=== PATIENT | male | born 1940 | race Caucasian/White ===

== ENCOUNTER 2017-12-13 15:35 | Inpatient (IN) | payer OTHER ==
[~2017-12-13] VITALS: Ht 185.4 cm; Wt 70.8 kg
[~2017-12-13 15:35] MED LIST: ALBMDI INH; AMIO200T3 PO; APIX5TAB PO; LIP10 PO; LORA-258 PO; MEMA14CA PO; MES60 PO; METO25TA3 PO; MONT10TA25 PO; PRO40 PO; SER25 PO; VENL75CA PO
[2017-12-13 15:40] VITALS: BP_SYST 129
[2017-12-13] MEDS ORDERED: NACL 0.9% 1,000 ML IV ONE ×2 (17:15→19:30)
[2017-12-13 17:45] LABS: LYMPHOCYTES # (AUTO) 1.1 K/uL (1.0-5.5); MEAN CORPUSCULAR VOLUME 90 fL (79.0-98.0); MONOCYTES # (AUTO) 0.7 K/uL (0.0-1.0); RED CELL DISTRIBUTION WIDTH 13.2 % (9.0-15.0)
[2017-12-13 17:51] LABS: EOSINOPHILS # (AUTO) 0.1 K/uL (0.0-0.4); MEAN CORPUSCULAR HEMOGLOBIN 31 pg (27-31)
[2017-12-13 17:54] LABS: BASOPHILS # (AUTO) 0.1 K/uL (0.0-0.2); BASOPHILS % (AUTO) 1.7 % (0.0-2.0); EOSINOPHILS % (AUTO) 0.8 % (0.0-4.0); HEMATOCRIT 42.3 % (36-54); HEMOGLOBIN 14.3 g/dL (14.0-18.0); LYMPHOCYTES % (AUTO) 13.1 % (20.5-51.5); MEAN CORPUSCULAR HGB CONC 34 % (32-36); MONOCYTES % (AUTO) 8.3 % (1.7-9.3); NEUTROPHILS % (AUTO) 76.1 % (40.0-70.0); PLATELET COUNT (AUTO) 240 K/uL (130-430); RED BLOOD CELL COUNT(AUTO) 4.69 MIL/uL (4.2-6.2)
[2017-12-13 18:19] LABS: ANION GAP 12 (5-15); CALCIUM 9.6 mg/dL (8.4-11.0); CHLORIDE 104 mmol/L (98-107); GLUCOSE 111 mg/dL (70-99); POTASSIUM 4.6 mmol/L (3.5-5.1); SODIUM SERUM 141 mmol/L (136-145); UREA NITROGEN, BLOOD 30 mg/dL (8-21)
[2017-12-13 18:24] LABS: ALANINE AMINOTRANSFERASE 21 U/L (12-78); ALBUMIN 3.6 g/dL (3.4-4.8); ASPARTATE AMINOTRANSFERASE 45 U/L (10-37); TOTAL BILIRUBIN 2.1 mg/dL (0.0-1.0)
[2017-12-13] MEDS ORDERED: MONT10TA22 (19:17)
[2017-12-13 20:05] VITALS: BP_SYST 126
[2017-12-13 20:23] VITALS: BP_SYST 150
[2017-12-13 23:30] VITALS: BP_SYST 137; BP_SYST 141
[2017-12-14] MEDS ORDERED: ALBUTEROL SULFATE 0.083% 2.5 MG/3 ML VIAL.NEB INH PRN ×2 (06:00→07:45)
[2017-12-14] MEDS ORDERED: ONDANSETRON HCL 4 MG/2 ML VIAL IVP PRN (06:00)
[2017-12-14] MEDS ORDERED: ACETAMINOPHEN 325 MG TABLET PO PRN (06:00)
[2017-12-14] MEDS: NACL 0.9% 1,000 ML IV SCH ×2 (06:23→20:59)
[2017-12-14] MEDS: PANTOPRAZOLE SODIUM 40 MG TAB PO SCH (06:30)
[2017-12-14] MEDS: PYRIDOSTIGMINE BROMIDE 60 MG TABLET PO SCH ×6 (06:30→20:58)
[2017-12-14] MEDS ORDERED: PYRIDOSTIGMINE BROMIDE 60 MG TABLET ONE (06:35)
[2017-12-14] MEDS ORDERED: LORazepam 1 MG TABLET PO PRN (07:45)
[2017-12-14 08:00] VITALS: BP_SYST 141
[2017-12-14] MEDS ORDERED: CEFAZOLIN 1 GM IVPB PREMIX 50 ML IV ONE (08:15)
[2017-12-14 09:00] LABS: BASOPHILS % (AUTO) 0.6 % (0.0-2.0); EOSINOPHILS # (AUTO) 0.2 K/uL (0.0-0.4); EOSINOPHILS % (AUTO) 3.2 % (0.0-4.0); HEMATOCRIT 39.1 % (36-54); HEMOGLOBIN 12.9 g/dL (14.0-18.0); LYMPHOCYTES # (AUTO) 1.3 K/uL (1.0-5.5); LYMPHOCYTES % (AUTO) 22.9 % (20.5-51.5); MEAN CORPUSCULAR HEMOGLOBIN 30 pg (27-31); MEAN CORPUSCULAR HGB CONC 33 % (32-36); MEAN CORPUSCULAR VOLUME 91 fL (79.0-98.0); MONOCYTES # (AUTO) 0.5 K/uL (0.0-1.0); MONOCYTES % (AUTO) 8.7 % (1.7-9.3); NEUTROPHILS # (AUTO) 3.7 K/uL (1.8-7.7); NEUTROPHILS % (AUTO) 64.6 % (40.0-70.0); PLATELET COUNT (AUTO) 217 K/uL (130-430); RED BLOOD CELL COUNT(AUTO) 4.32 MIL/uL (4.2-6.2); RED CELL DISTRIBUTION WIDTH 13.2 % (9.0-15.0); WHITE BLOOD COUNT (AUTO) 5.7 K/uL (4.8-10.8)
[2017-12-14 09:17] LABS: ALANINE AMINOTRANSFERASE 19 U/L (12-78); ALBUMIN 2.8 g/dL (3.4-4.8); ANION GAP 6 (5-15); ASPARTATE AMINOTRANSFERASE 34 U/L (10-37); CALCIUM 8.6 mg/dL (8.4-11.0); CHLORIDE 106 mmol/L (98-107); CREATININE 0.99 mg/dL (0.55-1.30); GLUCOSE 99 mg/dL (70-99); POTASSIUM 3.6 mmol/L (3.5-5.1); SODIUM SERUM 138 mmol/L (136-145); TOTAL BILIRUBIN 1.5 mg/dL (0.0-1.0); UREA NITROGEN, BLOOD 22 mg/dL (8-21)
[2017-12-14] MEDS: QUEtiapine FUMARATE 25 MG TABLET PO SCH (09:30)
[2017-12-14] MEDS: ATORVASTATIN 10 MG TABLET PO SCH (09:30)
[2017-12-14] MEDS: MEMANTINE HCL 5 MG TABLET PO SCH ×2 (09:30→20:58)
[2017-12-14] MEDS: AMIODARONE HCL 200 MG TABLET PO SCH (09:31)
[2017-12-14] MEDS: METOPROLOL SUCCINATE 25 MG TAB.SR.24H (TOPROL XL) PO SCH (09:31)
[2017-12-14] MEDS: Effexor XR 37.5 MG PO SCH (09:32)
[2017-12-14 12:50] VITALS: BP_SYST 140
[2017-12-14 16:55] VITALS: BP_SYST 132
[2017-12-14] MEDS: MONTELUKAST 10 MG TABLET PO SCH (17:18)
[2017-12-14 17:29] VITALS: BP_SYST 141
[2017-12-14 20:15] VITALS: BP_SYST 111
[2017-12-15] MEDS: PYRIDOSTIGMINE BROMIDE 60 MG TABLET PO SCH ×8 (00:04→21:43)
[2017-12-15 04:31] VITALS: BP_SYST 129
[2017-12-15] MEDS: PANTOPRAZOLE SODIUM 40 MG TAB PO SCH (06:30)
[2017-12-15 06:57] LABS: BASOPHILS # (AUTO) 0.1 K/uL (0.0-0.2); BASOPHILS % (AUTO) 0.8 % (0.0-2.0); EOSINOPHILS # (AUTO) 0.4 K/uL (0.0-0.4); EOSINOPHILS % (AUTO) 5.4 % (0.0-4.0); HEMATOCRIT 37.3 % (36-54); HEMOGLOBIN 12.4 g/dL (14.0-18.0); LYMPHOCYTES # (AUTO) 1.5 K/uL (1.0-5.5); LYMPHOCYTES % (AUTO) 23.4 % (20.5-51.5); MEAN CORPUSCULAR HEMOGLOBIN 31 pg (27-31); MEAN CORPUSCULAR HGB CONC 33 % (32-36); MEAN CORPUSCULAR VOLUME 92 fL (79.0-98.0); MONOCYTES # (AUTO) 0.4 K/uL (0.0-1.0); MONOCYTES % (AUTO) 6.6 % (1.7-9.3); NEUTROPHILS # (AUTO) 4.2 K/uL (1.8-7.7); NEUTROPHILS % (AUTO) 63.8 % (40.0-70.0); PLATELET COUNT (AUTO) 202 K/uL (130-430); RED BLOOD CELL COUNT(AUTO) 4.06 MIL/uL (4.2-6.2); WHITE BLOOD COUNT (AUTO) 6.6 K/uL (4.8-10.8)
[2017-12-15 07:13] LABS: INR 1.1 (0.80-1.20); PROTHROMBIN TIME 11.1 SECS (9.5-12.5)
[2017-12-15 07:14] LABS: ANION GAP 3 (5-15); CALCIUM 8.4 mg/dL (8.4-11.0); CHLORIDE 108 mmol/L (98-107); GLUCOSE 104 mg/dL (70-99); POTASSIUM 3.6 mmol/L (3.5-5.1); SODIUM SERUM 139 mmol/L (136-145); UREA NITROGEN, BLOOD 13 mg/dL (8-21)
[2017-12-15] MEDS: MEPERIDINE HCL/PF 100 MG/ML AMP ONE ×3 (07:36→09:22)
[2017-12-15] MEDS: MIDAZOLAM HCL 5 MG/5 ML VIAL ONE ×6 (07:37→09:30)
[2017-12-15] MEDS: Effexor XR 37.5 MG PO SCH (09:00)
[2017-12-15] MEDS: AMIODARONE HCL 200 MG TABLET PO SCH (09:00)
[2017-12-15] MEDS: METOPROLOL SUCCINATE 25 MG TAB.SR.24H (TOPROL XL) PO SCH (09:00)
[2017-12-15] MEDS: NACL 0.9% 1,000 ML IV SCH ×2 (09:40→23:00)
[2017-12-15 10:00] VITALS: BP_SYST 113
[2017-12-15] MEDS: ATORVASTATIN 10 MG TABLET PO SCH (11:19)
[2017-12-15] MEDS: MEMANTINE HCL 5 MG TABLET PO SCH ×2 (11:19→21:43)
[2017-12-15] MEDS: QUEtiapine FUMARATE 25 MG TABLET PO SCH (11:21)
[2017-12-15 12:00] VITALS: BP_SYST 128
[2017-12-15 14:00] VITALS: BP_SYST 128
[2017-12-15 16:36] VITALS: BP_SYST 124
[2017-12-15] MEDS: MONTELUKAST 10 MG TABLET PO SCH (18:03)
[2017-12-15 20:48] VITALS: BP_SYST 137
[2017-12-16] MEDS: PYRIDOSTIGMINE BROMIDE 60 MG TABLET PO SCH ×6 (00:34→16:06)
[2017-12-16 01:18] VITALS: BP_SYST 127
[2017-12-16] MEDS: NACL 0.9% 1,000 ML IV SCH (03:04)
[2017-12-16 06:30] LABS: BASOPHILS % (AUTO) 0.7 % (0.0-2.0); EOSINOPHILS # (AUTO) 0.3 K/uL (0.0-0.4); EOSINOPHILS % (AUTO) 5.2 % (0.0-4.0); HEMATOCRIT 35.2 % (36-54); HEMOGLOBIN 12.1 g/dL (14.0-18.0); LYMPHOCYTES # (AUTO) 1.3 K/uL (1.0-5.5); LYMPHOCYTES % (AUTO) 21.3 % (20.5-51.5); MEAN CORPUSCULAR HEMOGLOBIN 31 pg (27-31); MEAN CORPUSCULAR HGB CONC 35 % (32-36); MEAN CORPUSCULAR VOLUME 91 fL (79.0-98.0); MONOCYTES # (AUTO) 0.4 K/uL (0.0-1.0); MONOCYTES % (AUTO) 6.4 % (1.7-9.3); NEUTROPHILS % (AUTO) 66.4 % (40.0-70.0); PLATELET COUNT (AUTO) 168 K/uL (130-430); RED BLOOD CELL COUNT(AUTO) 3.89 MIL/uL (4.2-6.2); RED CELL DISTRIBUTION WIDTH 13.1 % (9.0-15.0)
[2017-12-16] MEDS: PANTOPRAZOLE SODIUM 40 MG TAB PO SCH (06:36)
[2017-12-16 07:04] LABS: ALANINE AMINOTRANSFERASE 14 U/L (12-78); ALBUMIN 2.5 g/dL (3.4-4.8); ANION GAP 4 (5-15); ASPARTATE AMINOTRANSFERASE 28 U/L (10-37); CHLORIDE 107 mmol/L (98-107); CREATININE 0.94 mg/dL (0.55-1.30); GLUCOSE 97 mg/dL (70-99); SODIUM SERUM 136 mmol/L (136-145); TOTAL BILIRUBIN 1.2 mg/dL (0.0-1.0); UREA NITROGEN, BLOOD 12 mg/dL (8-21)
[2017-12-16 08:10] LABS: HEPATITIS A AB, IgM Negative (Negative); HEPATITIS B CORE AB, IgM Negative (Negative); HEPATITIS B SURFACE AG Negative (Negative)
[2017-12-16 08:34] VITALS: BP_SYST 141
[2017-12-16] MEDS: METOPROLOL SUCCINATE 25 MG TAB.SR.24H (TOPROL XL) PO SCH (10:11)
[2017-12-16] MEDS: AMIODARONE HCL 200 MG TABLET PO SCH (10:12)
[2017-12-16] MEDS: ATORVASTATIN 10 MG TABLET PO SCH (10:12)
[2017-12-16] MEDS: QUEtiapine FUMARATE 25 MG TABLET PO SCH (10:12)
[2017-12-16] MEDS: MEMANTINE HCL 5 MG TABLET PO SCH (10:12)
[2017-12-16] MEDS: Effexor XR 37.5 MG PO SCH (10:13)
[2017-12-16 11:31] VITALS: BP_SYST 121
[2017-12-16 16:26] VITALS: BP_SYST 111
[2017-12-16 16:47] VITALS: BP_SYST 111
[2017-12-16 17:21] LABS: ANTI NUCLEAR AB WITH REFLEX Positive (Negative)
[2017-12-18 14:30] LABS: ANTI-SMOOTH MUSCLE AB 34 Units (0-19)
== END 2017-12-16 18:30 | DRG 56 ==
LOC: SED 15:35 → SMU 19:45
PROVIDERS: ADMIT Internal Medicine; ATTEND Internal Medicine
PROC: 0DH68UZ Insertion of Feeding Device into Stomach, Via Natural or Artificial Opening Endoscopic (ICD-10-PCS; 2017-12-15)
PROC: 0DJ08ZZ Inspection of Upper Intestinal Tract, Via Natural or Artificial Opening Endoscopic (ICD-10-PCS; principal; 2017-12-15 10:45)
DX: G70.01 Myasthenia gravis with (acute) exacerbation (principal); J69.0 Pneumonitis due to inhalation of food and vomit; E46 Unspecified protein-calorie malnutrition; R13.10 Dysphagia, unspecified; J44.9 Chronic obstructive pulmonary disease, unspecified; I10 Essential (primary) hypertension; K21.9 Gastro-esophageal reflux disease without esophagitis; G30.9 Alzheimer's disease, unspecified; F02.80 Dementia in other diseases classified elsewhere, unspecified severity, without behavioral disturbance, psychotic disturbance, mood disturbance, and anxiety; Z79.899 Other long term (current) drug therapy; Z68.20 Body mass index [BMI] 20.0-20.9, adult
CPT/HCPCS: 36415; 43246; 71045; 76700-TC; 80048; 80053; 80074; 82977-TC; 83516; 85025; 85610-TC; 85730-TC; 86038; 87230-TC; 92610-GN; 96360; 96361; 97110-GP; 99285; J0690; J2175; J2250; J2405; J7030

== ENCOUNTER 2018-02-05 17:26 | Emergency (ER) | payer OTHER ==
[~2018-02-05] VITALS: Ht 185.4 cm; Wt 71.2 kg
[~2018-02-05 17:26] MED LIST changes: +MONT10TA22
[2018-02-05 17:38] VITALS: BP_SYST 151
--- NOTE | 2018-02-05 17:50 | NUR ---
Patient to ER bed 2 to gown for evaluation. Side rails up. Assumed care of patient.
--- NOTE | 2018-02-05 18:02 | NUR ---
Patient is here for clogged GT. GT was easily unclogged, gastric residual 20mL. Patient was educated on need to competely crush medications and flush with free water. I also discussed with patient better ways of crushing medication and to make sure the pharmicist is aware that he is crushing his medications.
--- NOTE | 2018-02-05 18:07 | NUR ---
ER Dr. Taylor at bedside examining patient.
--- NOTE | 2018-02-05 18:39 | NUR ---
Note undone in EDM - 02/05/18 at 1840 by [email or web address] Patient given written and verbal discharge instructions and verbalizes understanding. ER discussed with patient the results and treatment provided. Patient in stable condition. ID arm band removed. Patient educated on pain management and to follow up with PMD. Pain Scale 0/10. Opportunity for questions provided and answered. Reinforced methods of clearing clogged GT with son and patient. Medication side effect fact sheet provided.
--- NOTE | 2018-02-05 18:41 | NUR ---
Patient given written and verbal discharge instructions and verbalizes understanding. ER MD discussed with patient the results and treatment provided. Patient in stable condition. ID arm band removed. Patient educated on pain management and to follow up with PMD. Pain Scale 0/10. Opportunity for questions provided and answered. Reinforced methods of clearing clogged GT with son and patient. Medication side effect fact sheet provided.
== END 2018-02-05 18:41 | disposition home or self-care (01) ==
LOC: SED 17:26
DX: K94.23 Gastrostomy malfunction (principal); K21.9 Gastro-esophageal reflux disease without esophagitis; I10 Essential (primary) hypertension; G30.9 Alzheimer's disease, unspecified; F02.80 Dementia in other diseases classified elsewhere, unspecified severity, without behavioral disturbance, psychotic disturbance, mood disturbance, and anxiety; Z79.899 Other long term (current) drug therapy; Z96.649 Presence of unspecified artificial hip joint
CPT/HCPCS: 99284

== ENCOUNTER 2019-01-22 06:52 | Inpatient (IN) | payer OTHER ==
[~2019-01-22] VITALS: Ht 172.7 cm; Wt 55.3 kg
[~2019-01-22 06:52] MED LIST changes: +AMI200 PO; -AMIO200T3 PO
[2019-01-22 06:57] VITALS: BP_SYST 99
[2019-01-22] MEDS ORDERED: LevALBUTEROL HCL 1.25 MG/0.5 ML *CONC.* VIAL.NEB (XOPENEX CONC.) INH ONE (07:15)
[2019-01-22 07:28] LABS: HEMATOCRIT 38.5 % (36-54); HEMOGLOBIN 12.9 g/dL (14.0-18.0); MEAN CORPUSCULAR HEMOGLOBIN 32 pg (27-31); MEAN CORPUSCULAR HGB CONC 34 % (32-36); MEAN CORPUSCULAR VOLUME 96 fL (79.0-98.0); PLATELET COUNT (AUTO) 231 K/uL (130-430); RED BLOOD CELL COUNT(AUTO) 3.99 MIL/uL (4.2-6.2); RED CELL DISTRIBUTION WIDTH 15.5 % (9.0-15.0)
[2019-01-22 07:37] LABS: ANION GAP 12 (5-15); CALCIUM 9.5 mg/dL (8.4-11.0); CHLORIDE 99 mmol/L (98-107); CREATININE 1.98 mg/dL (0.55-1.30); GLUCOSE 117 mg/dL (70-99); POTASSIUM 3.9 mmol/L (3.5-5.1); SODIUM SERUM 140 mmol/L (136-145); UREA NITROGEN, BLOOD 57 mg/dL (8-21); WHITE BLOOD COUNT (AUTO) 3.5 K/uL (4.8-10.8)
[2019-01-22 07:42] LABS: INR 1.2 (0.80-1.20); PROTHROMBIN TIME 12.1 SECS (9.5-12.5)
[2019-01-22 07:52] LABS: ALANINE AMINOTRANSFERASE 25 U/L (12-78); ALBUMIN 2.6 g/dL (3.4-4.8); ASPARTATE AMINOTRANSFERASE 43 U/L (10-37)
[2019-01-22] MEDS ORDERED: APIX5TAB PO (08:00)
[2019-01-22] MEDS ORDERED: ACET325T53 PO (08:00)
[2019-01-22] MEDS ORDERED: HYOS0.1275 PO (08:00)
[2019-01-22 08:11] LABS: ATYPICAL LYMPHOCYTES % 4 % (0-0); BAND % (MANUAL) 29 % (0-6); BASOPHILS % (MANUAL) 0 % (0-2); EOSINOPHILS % (MANUAL) 0 % (0-7); LYMPHOCYTES % (MANUAL) 25 % (20-46); METAMYELOCYTES % 2 % (0-0); MONOCYTES % (MANUAL) 11 % (0-11); MYELOCYTES % 2 % (0-0); PROMYELOCYTES % 4 % (0-0)
[2019-01-22 08:36] LABS: BILIRUBIN,URINE NEGATIVE (NEGATIVE); BLOOD, URINE NEGATIVE (NEGATIVE); CLARITY/URINE CLEAR (CLEAR); COLOR,URINE YELLOW (YELLOW); GLUCOSE,URINE NEGATIVE (NEGATIVE); KETONES,URINE TRACE (NEGATIVE); LEUKOCYTE ESTERASE ,URINE NEGATIVE (NEGATIVE); NITRITE, URINE NEGATIVE (NEGATIVE); PROTEIN URINE TRACE (NEGATIVE); UROBILINOGEN,URINE 0.2 (0.2-1.0)
[2019-01-22 08:41] LABS: BACTERIA,URINE FEW /HPF (None Seen); RBC,URINE 0-3 /HPF (0-3); WBC,URINE 0-3 /HPF (0-3)
[2019-01-22 08:42] LABS: URINE AMORPHOUS URATE 2+ /HPF (None Seen)
[2019-01-22 08:47] LABS: BARBITURATE, URINE NEGATIVE (NEG <=200); BENZODIAZEPINE, URINE POSITIVE (NEG <=150); COCAINE, URINE NEGATIVE (NEG <=150); METHAMPHETAMINES SCREEN,URINE NEGATIVE (NEG <=500); URINE AMPHETAMINE NEGATIVE (NEG <=500); URINE METHADONE NEGATIVE (NEG <=200)
[2019-01-22 08:48] LABS: CANNABINOID, URINE NEGATIVE (NEG <=50); PHENCYCLIDINE SCREEN,URINE NEGATIVE (NEG <=25); UR TRICYCLIC ANTIDEPRESSANTS POSITIVE (NEG <=300); URINE OXYCODONE SCREEN NEGATIVE (NEG <=100); URINE PROPOXYPHENE SCREEN NEGATIVE (NEG <=300)
[2019-01-22 08:49] LABS: OPIATE, URINE POSITIVE (NEG <=100)
[2019-01-22] MEDS ORDERED: PIPERACILLIN/TAZO 3.375 GM in NS 50 ML IV ONE (09:15)
[2019-01-22] MEDS ORDERED: PIPERACILLIN/TAZOBACTAM 3.375 GM/VIAL (ZOSYN) IV ONE (09:46)
[2019-01-22 10:00] VITALS: BP_SYST 95
[2019-01-22] MEDS ORDERED: IPRATROPIUM BROM 0.5 MG/2.5 ML VIAL.NEB (ATROVENT) INH PRN (10:30)
[2019-01-22] MEDS ORDERED: ALBUTEROL SULFATE 0.083% 2.5 MG/3 ML VIAL.NEB INH PRN (10:30)
[2019-01-22] MEDS ORDERED: AZITHROMYCIN 500 MG in NS 250 ML IV SCH (10:30)
[2019-01-22] MEDS ORDERED: cefTRIAXone 1 GM in D5W 50 ML IV SCH (10:30)
[2019-01-22] MEDS ORDERED: 0.45% NACL 1,000 ML IV SCH (11:30)
[2019-01-22] MEDS: ALBUTEROL SULFATE 0.083% 2.5 MG/3 ML VIAL.NEB INH SCH ×2 (13:43→20:10)
[2019-01-22] MEDS: IPRATROPIUM BROM 0.5 MG/2.5 ML VIAL.NEB (ATROVENT) INH SCH ×2 (13:43→20:10)
[2019-01-22] MEDS: PIPERACILLIN/TAZO 2.25G/DEX-IS 50 ML IV SCH ×2 (14:14→17:53)
[2019-01-22 15:44] VITALS: BP_SYST 84
[2019-01-22 16:17] VITALS: BP_SYST 84
[2019-01-22 20:04] VITALS: BP_SYST 47
[2019-01-23] MEDS: PIPERACILLIN/TAZO 2.25G/DEX-IS 50 ML IV SCH (00:23)
[2019-01-23] MEDS: IPRATROPIUM BROM 0.5 MG/2.5 ML VIAL.NEB (ATROVENT) INH SCH (01:16)
[2019-01-23] MEDS: ALBUTEROL SULFATE 0.083% 2.5 MG/3 ML VIAL.NEB INH SCH (01:17)
== END 2019-01-23 02:10 | disposition expired | DRG 177 ==
LOC: SED 06:52 → STU 09:19
PROVIDERS: ADMIT Internal Medicine Hospice and Palliative Medicine; ATTEND Internal Medicine Hospice and Palliative Medicine
PROC: 5A09357 Assistance with Respiratory Ventilation, Less than 24 Consecutive Hours, Continuous Positive Airway Pressure (ICD-10-PCS; principal; 2019-01-22)
DX: J69.0 Pneumonitis due to inhalation of food and vomit (principal); J96.00 Acute respiratory failure, unspecified whether with hypoxia or hypercapnia; G70.00 Myasthenia gravis without (acute) exacerbation; I10 Essential (primary) hypertension; I48.91 Unspecified atrial fibrillation; J44.9 Chronic obstructive pulmonary disease, unspecified; K21.9 Gastro-esophageal reflux disease without esophagitis; R13.10 Dysphagia, unspecified; Z66 Do not resuscitate; E86.0 Dehydration; Z79.899 Other long term (current) drug therapy
CPT/HCPCS: 36415; 36600; 71045; 80053; 80307; 81000-TC; 82803-TC; 83880; 84484; 85007; 85027; 85610-TC; 85730-TC; 93005; 94640; 94660; 94760; 96365; 99285; G0378; J0456; J0696; J2543; J7050; J7060; J7612; J7613